=== PATIENT | male | born 1980 | race Caucasian/White ===

== ENCOUNTER 2023-04-24 08:01 | Outpatient (CLI) | payer OTHER, SELFPAY ==
[2023-04-24 09:54] LABS: Anion Gap 8 mmol/L (8-16); Blood Urea Nitrogen 21 mg/dL (9-20); Carbon Dioxide 27 mmol/L (22-30); Chloride 105 mmol/L (98-107); Cholesterol 200 mg/dL (0-200); Estimated Glomerular Filt Rate > 60; Glucose 104 mg/dL (65-110); HDL Direct 56 mg/dL; Potassium 4.2 mmol/L (3.4-5.0); Sodium 140 mmol/L (137-145); Triglycerides 69 mg/dL (<150)
[2023-04-24 10:05] LABS: LDL Cholesterol Direct 115 mg/dL
[2023-04-24 10:15] LABS: Vitamin D 25 Hydroxy 28.6 ng/mL
[2023-04-24 10:27] LABS: Prostate Specific Antigen 0.6 ng/mL (< OR = 4.0)
== END 2023-04-24 08:02 | disposition home or self-care (01) ==
PROVIDERS: PCP Family Medicine; Visit Provider Nurse Practitioner Family
DX: R53.83 Other fatigue (principal); E55.9 Vitamin D deficiency, unspecified; Z12.5 Encounter for screening for malignant neoplasm of prostate; Z13.220 Encounter for screening for lipoid disorders; Z13.29 Encounter for screening for other suspected endocrine disorder; Z13.1 Encounter for screening for diabetes mellitus
CPT/HCPCS: 36415; 80048; 80061; 82306; 84153; 84443; G0103

== ENCOUNTER 2024-04-05 13:42 | Outpatient (CLI) | payer OTHER, SELFPAY ==
--- NOTE | ~2024-04-05 | MR_ITS ---
EXAMINATION: MR elbow RT wo con DATE: 04/05/2024 14:15 INDICATION: Right elbow pain. Strain of muscle, fascia and tendon of right elbow. TECHNIQUE: Magnetic resonance imaging (MRI) of the right elbow was performed without intravenous cont rast. Sequences included coronal, axial, and sagittal PD-weighted FS FSE and coronal, axial, and sagi ttal PD-weighted FSE. COMPARISON: Right elbow radiographs 03/24/2024 FINDINGS: Osseous/other: Bone alignment is normal. No fracture. The elbow joint demonstrates cartilage surface irregularity an d osteophytes. Tendons: There is moderate tendinopathy of the origin of common flexor tendon at medial humeral epicondyle. Br achialis tendon and triceps tendon are normal. There is a partial tear of biceps tendon at its distal attachment involving approximately 70% of the tendon fibers with 2.0 cm gap [id number]. Ligaments: Radial collateral ligament, lateral ulnar collateral ligament, and ulnar collateral ligament are norm al. Cubital tunnel: The ulnar nerve is normal. Fluid: There is no elbow joint effusion. There is mild bicipitoradial bursitis. IMPRESSION: 1. Partial tear of distal biceps tendon. Reviewed, dictated and finalized at location A.
== END 2024-04-05 13:43 ==
PROVIDERS: PCP Family Medicine; Visit Provider Orthopaedic Surgery
DX: S46.211D Strain of muscle, fascia and tendon of other parts of biceps, right arm, subsequent encounter (principal); X58.XXXD Exposure to other specified factors, subsequent encounter
CPT/HCPCS: 73221